=== PATIENT | male | born 1955 | race Caucasian/White ===

== ENCOUNTER 2024-05-10 15:16 | Emergency (ER) | payer OTHER, SELFPAY ==
[2024-05-10] VITALS (16 sets, daily range): BP systolic 129–224; BP diastolic 59–126; PULSE 65–126; RESP 14–25; TEMP 37.4; O2SAT 94–98; BMI 33.5
--- NOTE | 2024-05-10 15:36 | ED_ITS ---
HPI - Skin/Abscess/Foreign Bdy <Alexandr Muñoz MD - Last Filed: 05/11/24 12:05> General Chief complaint: Skin/Abscess/Foreign Body Stated complaint: headache, not eating x4 days Time Seen by Provider: 05/10/24 15:32 Source: patient Mode of arrival: Ambulatory Limitations: no limitations History of Present Illness HPI narrative: Patient here with his . Complains of left facial burning/pain for the past 5 days. Patient stated pain started last Wednesday. By Wednesday rash appeared. Patient does have history of chickenpox as a child. No prior history of shingles. Patient does not want steroids for treatment of shingles. Blood pressure noted. Patient states he is very anxious and has facial pain. No vision changes. No pain with eye movement. Patient has rash/vesicles of the left cheek left periorbital left forehead and left tasia nasal area. Does not cross midline. It does extend into the scalp. Has not had much of an appetite for the past 3 days. Related Data Previous Rx's Medication Instructions Recorded erythromycin 5 mg/gram (0.5 %) eye 0.5 inch ophthalmic (eye) Q8H #3.5 05/10/24 ointment grams ondansetron 4 mg disintegrating 4 mg PO Q6H PRN nausea and 05/10/24 tablet vomiting #10 tabs oxycodone 5 mg tablet 5 mg PO Q6H PRN pain #20 tabs 05/10/24 valacyclovir 1 gram tablet 1,000 mg PO Q8H 7 days #21 tabs 05/10/24 Allergies Allergy/AdvReac Type Severity Reaction Status Date / Time No Known Drug Allergies Allergy Verified 05/10/24 15:44 Review of Systems <Alexandr Muñoz MD - Last Filed: 05/11/24 12:05> Review of Systems Narrative: GENERAL: negative chills, fatigue, malaise, fever, sweats. HEENT: negative sinus pain, ear pain, sore throat RESPIRATORY: negative dyspnea, cough CARDIOVASCULAR: negative chest pain, palpitations GASTROINTESTINAL: Positive nausea, vomiting, negative abdominal pain : negative dysuria, frequency, hematuria MUSCULOSKELETAL: negative muscle or bony pain SKIN: Positive rash, skin lesions NEUROLOGIC: negative weakness, numbness, negative headache Patient History <Alexandr Muñoz MD - Last Filed: 05/11/24 12:05> Social History Smoking Status: Former smoker Smoking Status: Former smoker alcohol intake frequency: other Alcohol type: other Exam <Alexandr Muñoz MD - Last Filed: 05/11/24 12:05> Narrative Exam Narrative: GENERAL: in no distress, not toxic not dyspneic HEAD: Normocephalic. EYES: Pupils equal round, denies any eye pain. No scleral injection of the left eye no conjunctivitis. No pain with eye movement. EOMI/YAMILEX ENT: Mucous membranes moist. NECK: Trachea midline. CARDIOVASCULAR: Regular rate and rhythm RESPIRATORY: Clear to auscultation. Breath sounds equal bilaterally. No wheezes, rales, or rhonchi. GASTROINTESTINAL: Abdomen soft, non-tender EXTREMITIES: No gross deformities. BACK: No flank tenderness. NEURO: AOx4. Clear speech SKIN: Warm and dry, there is vesicles shingles pattern at the left forehead left periorbital left nasal left cheek, extending to the scalp. It does not cross midline. PSYCH: Not anxious, is cooperative Initial Vital Signs Initial Vital Signs: Vital Signs Pulse Rate 79 05/10/24 15:23 Pulse Oximetry 96 05/10/24 15:23 <Celena Smith DO - Last Filed: 05/11/24 03:52> Initial Vital Signs Initial Vital Signs: Vital Signs Pulse Rate 79 05/10/24 15:23 Pulse Oximetry 96 05/10/24 15:23 Course <Alexandr Muñoz MD - Last Filed: 05/11/24 12:05> Orders Ordered: Discontinued Medications Carvedilol (Carvedilol 12.5 Mg Tablet) 12.5 mg PO NOW ONE Stop: 05/10/24 17:44 Last Admin: 05/10/24 17:55 Dose: 12.5 mg Documented By: JOHN Fluorescein Sodium (Fluorescein 1 Mg Strip) 1 mg EYE-BOTH NOW ONE Stop: 05/10/24 19:27 Last Admin: 05/10/24 19:43 Dose: 1 mg Documented By: ISAAC Hydromorphone HCl (Hydromorphone 1 Mg Inj) 1 mg IV NOW ONE Stop: 05/10/24 15:36 Last Admin: 05/10/24 15:41 Dose: 1 mg Documented By: ALPA Sodium Chloride (Normal Saline 0.9%) 1,000 mls @ 1,000 mls/hr IV BOLUS ONE Stop: 05/10/24 16:26 Last Infusion: 05/10/24 16:51 Dose: Infused Documented By: Admin: 05/10/24 15:41 Dose: 1,000 mls/hr Documented By: ALPA Acyclovir 500 mg/ Dextrose 250 mls @ 250 mls/hr IV NOW ONE Stop: 05/10/24 15:37 Last Infusion: 05/10/24 17:33 Dose: Infused Documented By: Admin: 05/10/24 16:06 Dose: 250 mls/hr Documented By: ALPA Ondansetron HCl (Ondansetron 4 Mg/2 Ml Inj) 4 mg IV NOW PRN PRN Reason: Nausea And Vomiting Last Admin: 05/10/24 15:41 Dose: 4 mg Documented By: ALPA Ondansetron HCl (Ondansetron 4 Mg Odt) 4 mg SL NOW PRN PRN Reason: Nausea And Vomiting Ondansetron HCl (Ondansetron 4 Mg Odt Prepack) 1 bottle MISC DIRECTED ONE Stop: 05/10/24 21:05 Last Admin: 05/10/24 21:08 Dose: 1 bottle Documented By: ALPA Oxycodone/Acetaminophen (Oxycodone/Acetaminophen 5/325 Tablet) 2 tab PO NOW ONE Stop: 05/10/24 17:44 Last Admin: 05/10/24 17:56 Dose: 2 tab Documented By: JOHN Oxycodone/Acetaminophen (Oxycodone/Apap 5/325 Prepack) 1 bottle MISC DIRECTED ONE Stop: 05/10/24 21:05 Last Admin: 05/10/24 21:08 Dose: 1 bottle Documented By: ALPA Prochlorperazine (Prochlorperazine 10 Mg/2 Ml Vial) 10 mg IV NOW ONE Stop: 05/10/24 15:44 Last Admin: 05/10/24 15:46 Dose: 10 mg Documented By: ALPA Proparacaine HCl (Proparacaine 0.5% Ophth [place]) 1 drops EYE-BOTH NOW ONE Stop: 05/10/24 19:27 Last Admin: 05/10/24 19:42 Dose: 1 drop Documented By: [facility] Vital Signs Vital signs: Vital Signs - 8 hr 05/10/24 15:23 05/10/24 15:25 05/10/24 15:26 Temperature 99.4 F Pulse Rate 79 126 H 115 H Respiratory Rate 20 14 Blood Pressure 224/126 H Pulse Oximetry 96 98 97 Oxygen Delivery Method Room Air 05/10/24 15:30 05/10/24 15:36 05/10/24 15:36 Temperature Pulse Rate 109 H 104 H Respiratory Rate 25 H Blood Pressure 193/125 H Pulse Oximetry 97 97 Oxygen Delivery Method Room Air 05/10/24 16:00 05/10/24 16:00 05/10/24 16:30 Temperature Pulse Rate 107 H Respiratory Rate 24 Blood Pressure 175/107 H 189/96 H Pulse Oximetry 94 Oxygen Delivery Method 05/10/24 16:30 05/10/24 17:00 05/10/24 17:00 Temperature Pulse Rate 87 98 H Respiratory Rate 23 Blood Pressure 184/105 H Pulse Oximetry 95 96 Oxygen Delivery Method 05/10/24 17:13 05/10/24 17:13 05/10/24 17:30 Temperature Pulse Rate 91 H 93 H Respiratory Rate Blood Pressure 185/113 H Pulse Oximetry 95 96 Oxygen Delivery Method 05/10/24 17:55 05/10/24 18:00 05/10/24 18:30 Temperature Pulse Rate 114 H 88 97 H Respiratory Rate 24 18 Blood Pressure 185/113 H Pulse Oximetry 96 97 Oxygen Delivery Method 05/10/24 18:58 05/10/24 18:58 05/10/24 19:00 Temperature Pulse Rate 65 Respiratory Rate Blood Pressure 137/76 129/59 L Pulse Oximetry 94 Oxygen Delivery Method 05/10/24 19:00 05/10/24 19:30 05/10/24 19:30 Temperature Pulse Rate 74 69 Respiratory Rate Blood Pressure 145/80 H Pulse Oximetry 94 96 Oxygen Delivery Method <Celena Smith, - Last Filed: 05/11/24 03:52> Orders Ordered: Discontinued Medications Carvedilol (Carvedilol 12.5 Mg Tablet) 12.5 mg PO NOW ONE Stop: 05/10/24 17:44 Last Admin: 05/10/24 17:55 Dose: 12.5 mg Documented By: JOHN Fluorescein Sodium (Fluorescein 1 Mg Strip) 1 mg EYE-BOTH NOW ONE Stop: 05/10/24 19:27 Last Admin: 05/10/24 19:43 Dose: 1 mg Documented By: ISAAC Hydromorphone HCl (Hydromorphone 1 Mg Inj) 1 mg IV NOW ONE Stop: 05/10/24 15:36 Last Admin: 05/10/24 15:41 Dose: 1 mg Documented By: ALPA Sodium Chloride (Normal Saline 0.9%) 1,000 mls @ 1,000 mls/hr IV BOLUS ONE Stop: 05/10/24 16:26 Last Infusion: 05/10/24 16:51 Dose: Infused Documented By: Admin: 05/10/24 15:41 Dose: 1,000 mls/hr Documented By: ALPA Acyclovir 500 mg/ Dextrose 250 mls @ 250 mls/hr IV NOW ONE Stop: 05/10/24 15:37 Last Infusion: 05/10/24 17:33 Dose: Infused Documented By: Admin: 05/10/24 16:06 Dose: 250 mls/hr Documented By: ALPA Ondansetron HCl (Ondansetron 4 Mg/2 Ml Inj) 4 mg IV NOW PRN PRN Reason: Nausea And Vomiting Last Admin: 05/10/24 15:41 Dose: 4 mg Documented By: ALPA Ondansetron HCl (Ondansetron 4 Mg Odt) 4 mg SL NOW PRN PRN Reason: Nausea And Vomiting Ondansetron HCl (Ondansetron 4 Mg Odt Prepack) 1 bottle MISC DIRECTED ONE Stop: 05/10/24 21:05 Last Admin: 05/10/24 21:08 Dose: 1 bottle Documented By: ALPA Oxycodone/Acetaminophen (Oxycodone/Acetaminophen 5/325 Tablet) 2 tab PO NOW ONE Stop: 05/10/24 17:44 Last Admin: 05/10/24 17:56 Dose: 2 tab Documented By: JOHN Oxycodone/Acetaminophen (Oxycodone/Apap 5/325 Prepack) 1 bottle MISC DIRECTED ONE Stop: 05/10/24 21:05 Last Admin: 05/10/24 21:08 Dose: 1 bottle Documented By: ALPA Prochlorperazine (Prochlorperazine 10 Mg/2 Ml Vial) 10 mg IV NOW ONE Stop: 05/10/24 15:44 Last Admin: 05/10/24 15:46 Dose: 10 mg Documented By: ALPA Proparacaine HCl (Proparacaine 0.5% Ophth [place]) 1 drops EYE-BOTH NOW ONE Stop: 05/10/24 19:27 Last Admin: 05/10/24 19:42 Dose: 1 drop Documented By: [facility] Vital Signs Vital signs: Vital Signs - 8 hr 05/10/24 15:23 05/10/24 15:25 05/10/24 15:26 Temperature 99.4 F Pulse Rate 79 126 H 115 H Respiratory Rate 20 14 Blood Pressure 224/126 H Pulse Oximetry 96 98 97 Oxygen Delivery Method Room Air 05/10/24 15:30 05/10/24 15:36 05/10/24 15:36 Temperature Pulse Rate 109 H 104 H Respiratory Rate 25 H Blood Pressure 193/125 H Pulse Oximetry 97 97 Oxygen Delivery Method Room Air 05/10/24 16:00 05/10/24 16:00 05/10/24 16:30 Temperature Pulse Rate 107 H Respiratory Rate 24 Blood Pressure 175/107 H 189/96 H Pulse Oximetry 94 Oxygen Delivery Method 05/10/24 16:30 05/10/24 17:00 05/10/24 17:00 Temperature Pulse Rate 87 98 H Respiratory Rate 23 Blood Pressure 184/105 H Pulse Oximetry 95 96 Oxygen Delivery Method 05/10/24 17:13 05/10/24 17:13 05/10/24 17:30 Temperature Pulse Rate 91 H 93 H Respiratory Rate Blood Pressure 185/113 H Pulse Oximetry 95 96 Oxygen Delivery Method 05/10/24 17:55 05/10/24 18:00 05/10/24 18:30 Temperature Pulse Rate 114 H 88 97 H Respiratory Rate 24 18 Blood Pressure 185/113 H Pulse Oximetry 96 97 Oxygen Delivery Method 05/10/24 18:58 05/10/24 18:58 05/10/24 19:00 Temperature Pulse Rate 65 Respiratory Rate Blood Pressure 137/76 129/59 L Pulse Oximetry 94 Oxygen Delivery Method 05/10/24 19:00 05/10/24 19:30 05/10/24 19:30 Temperature Pulse Rate 74 69 Respiratory Rate Blood Pressure 145/80 H Pulse Oximetry 94 96 Oxygen Delivery Method MDM - Skin/Abscess/Foreign Bdy <Alexandr Muñoz MD - Last Filed: 05/11/24 12:05> Lab Data 05/10/24 15:30 05/10/24 15:30 Labs: Lab Results 05/10/24 05/10/24 Range/Units 15:30 17:55 WBC 15.8 H (4.5-11.0) X10^3/uL RBC 6.00 H (4.5-5.9) X10^6/uL Hgb 18.0 H (13.5-17.5) g/dL Hct 52.6 (41-53) % MCV 87.7 (80-100) fL MCH 30.0 (26-34) PG MCHC 34.2 (30-36) % RDW 13.9 (11.6-14.8) % Plt Count 213 (150-400) X10^3/uL Neut % (Auto) 68.6 (50-75) % Lymph % (Auto) 22.7 L (25-40) % [place] % (Auto) 8.2 (3-14) % Eos % (Auto) 0.2 L (2-4) % Baso % (Auto) 0.3 (0-2) % Neut # (Auto) 97163 H (9317-9401) /uL Lymph # (Auto) 3600 (8842-7487) /uL [place] # (Auto) 1300 H (0-900) /uL Eos # (Auto) 0 (0-450) /uL Baso # (Auto) 0 (0-100) /uL PT 12.9 H (9.4-12.5) SECONDS INR 1.1 (0.9-1.3) APTT 36 (25.1-36.5) SECONDS Sodium 136 L (137-145) mmol/L Potassium 3.7 (3.4-5.1) mmol/L Chloride 101 (98-107) mmol/L Carbon Dioxide 23 (22-32) mmol/L BUN 16 (9-20) mg/dL Creatinine 0.76 (0.66-1.25) mg/dL Estimated GFR > 60 (>60) mL/min BUN/Creatinine Ratio 21.1 (6-22) Glucose 132 H (80-110) mg/dL Lactate 1.7 (0.7-2.1) mmol/L Calcium 9.1 (8.4-10.2) mg/dL Total Bilirubin 1.8 H (0.2-1.3) mg/dL AST 36 (17-59) IU/L ALT 39 (<50) IU/L Alkaline Phosphatase 70 (38-126) U/L Total Protein 8.4 H (6.3-8.2) g/dL Albumin 4.8 (3.5-5.0) g/dL Globulin 3.6 (1.7-4.1) g/dL Albumin/Globulin Ratio 1.3 (1.0-2.8) Lipase 33 (23-300) U/L Procalcitonin 0.051 (<0.5) ng/mL Chlamy pneumoniae PCR Not detected (Not Detect) Adenovirus (PCR) Not detected (Not Detect) B.parapertussis DNA PCR Not detected (Not Detecte) Coronavirus OC43 (PCR) Not detected (Not Detect) Coronavirus HKU1 (PCR) Not detected (Not Detect) Coronavirus 229E (PCR) Not detected (Not Detect) SARS-CoV-2 (PCR) Not detected (Not Detecte) Coronavirus NL63 (PCR) Not detected (Not Detect) Human Metapneumovir PCR Not detected (Not Detect) Influenza Type A (PCR) Not detected (Not Detect) Influenza Type B (PCR) Not detected (Not Detect) M. pneumoniae (PCR) Not detected (Not Detect) Parainfluenza 1 (PCR) Not detected (Not Detect) Parainfluenza 2 (PCR) Not detected (Not Detect) Parainfluenza 3 (PCR) Not detected (Not Detect) Parainfluenza 4 (PCR) Not detected (Not Detect) RSV (PCR) Not detected (Not Detect) Entero/Rhino (PCR) Not detected (Not Detect) [facility] Narrative Medical decision making narrative: Patient here with his . Complains of left facial burning/pain for the past 5 days. Patient stated pain started last Wednesday. By Wednesday rash appeared. Patient does have history of chickenpox as a child. No prior history of shingles. Patient does not want steroids for treatment of shingles. Blood pressure noted. Patient states he is very anxious and has facial pain. No vision changes. No pain with eye movement. Patient has rash/vesicles of the left cheek left periorbital left forehead and left tasia nasal area. Does not cross midline. It does extend into the scalp. Has not had much of an appetite for the past 3 days. After history and exam CBC CMP acyclovir Dilaudid Zofran normal saline MDM Medical records reviewed: No recent visit for this complaint Differential considered: Includes but not limited to shingles cellulitis meningitis encephalitis, clinically with patient's interaction and very energetic and active, likely not meningitis/encephalitis Lab Test results independently reviewed as above. Pertinent findings: WBC 15.8 INR 1.1 sodium 136 potassium 3.7 glucose 132 procalcitonin 0.051 lactic acid 1.7 Consultations: Treatments: Dilaudid Zofran Compazine normal saline Percocet acyclovir Re-evaluations: Patient updated results. Still tachycardic history AFib this is not new but no chest pain or shortness of breath. He is on aspirin and Coreg. Takes 12.5 mg Coreg twice a day. He states sometimes he forgets sometimes he has not in the past 5 days. I will order Coreg now as well as Percocet, this has been effective for pain control for him in the past. Discussion: 6:00 p.m.. Sign out to Dr. Smith, reassess for blood pressure as well as pain control. Diagnosis of shingles. Patient does not want steroids. Diagnosis: Shingles 05/10/2024 Dr. Smith: Patient signed out to myself found to have shingles here in the department has facial swelling, did not want steroids no vision changes did not cross midline does not have any eye patient is being started on medications including valacyclovir, drops Labs reviewed patient has a white count of 15 hemoglobin of 18 platelets of 213. INR is 1.1 sodium is 136 potassium 3.7 chloride 1 CO2 is 23 BUN 16 creatinine 0.7, glucose 132 lactate 1.7 bilirubin slightly up at 1.8 calcium and LFTs are otherwise normal protocol 0.051. Patient had respiratory panel which was negative Patient had chest x-ray which was negative. Patient was examined by myself has erythema does have shingles like rash does not appear to have any involvement the eye but did use proparacaine and fluorescein for examination there are no dendritic lesions in the eye itself, uptake. But discussed with patient if he has any pain into the eye itself he needs to have re-evaluation. Plan to start valacyclovir, patient does not want any steroids we will give Percocet for pain management as well as Zofran. Discussed with patient need for follow-up. They are here until May so we will also give follow up for Ophthalmology for recheck as needed patient and family were recommended to return to the ED if worsening symptoms. Patient states symptoms are improved since he has been here, blood pressures improved quite a bit as well. <Celena Smith, DO - Last Filed: 05/11/24 03:52> Lab Data Labs: Lab Results 05/10/24 05/10/24 Range/Units 15:30 17:55 WBC 15.8 H (4.5-11.0) X10^3/uL RBC 6.00 H (4.5-5.9) X10^6/uL Hgb 18.0 H (13.5-17.5) g/dL Hct 52.6 (41-53) % MCV 87.7 (80-100) fL MCH 30.0 (26-34) PG MCHC 34.2 (30-36) % RDW 13.9 (11.6-14.8) % Plt Count 213 (150-400) X10^3/uL Neut % (Auto) 68.6 (50-75) % Lymph % (Auto) 22.7 L (25-40) % [place] % (Auto) 8.2 (3-14) % Eos % (Auto) 0.2 L (2-4) % Baso % (Auto) 0.3 (0-2) % Neut # (Auto) 28008 H (3072-5062) /uL Lymph # (Auto) 3600 (0741-8193) /uL [place] # (Auto) 1300 H (0-900) /uL Eos # (Auto) 0 (0-450) /uL Baso # (Auto) 0 (0-100) /uL PT 12.9 H (9.4-12.5) SECONDS INR 1.1 (0.9-1.3) APTT 36 (25.1-36.5) SECONDS Sodium 136 L (137-145) mmol/L Potassium 3.7 (3.4-5.1) mmol/L Chloride 101 (98-107) mmol/L Carbon Dioxide 23 (22-32) mmol/L BUN 16 (9-20) mg/dL Creatinine 0.76 (0.66-1.25) mg/dL Estimated GFR > 60 (>60) mL/min BUN/Creatinine Ratio 21.1 (6-22) Glucose 132 H (80-110) mg/dL Lactate 1.7 (0.7-2.1) mmol/L Calcium 9.1 (8.4-10.2) mg/dL Total Bilirubin 1.8 H (0.2-1.3) mg/dL AST 36 (17-59) IU/L ALT 39 (<50) IU/L Alkaline Phosphatase 70 (38-126) U/L Total Protein 8.4 H (6.3-8.2) g/dL Albumin 4.8 (3.5-5.0) g/dL Globulin 3.6 (1.7-4.1) g/dL Albumin/Globulin Ratio 1.3 (1.0-2.8) Lipase 33 (23-300) U/L Procalcitonin 0.051 (<0.5) ng/mL Chlamy pneumoniae PCR Not detected (Not Detect) Adenovirus (PCR) Not detected (Not Detect) B.parapertussis DNA PCR Not detected (Not Detecte) Coronavirus OC43 (PCR) Not detected (Not Detect) Coronavirus HKU1 (PCR) Not detected (Not Detect) Coronavirus 229E (PCR) Not detected (Not Detect) SARS-CoV-2 (PCR) Not detected (Not Detecte) Coronavirus NL63 (PCR) Not detected (Not Detect) Human Metapneumovir PCR Not detected (Not Detect) Influenza Type A (PCR) Not detected (Not Detect) Influenza Type B (PCR) Not detected (Not Detect) M. pneumoniae (PCR) Not detected (Not Detect) Parainfluenza 1 (PCR) Not detected (Not Detect) Parainfluenza 2 (PCR) Not detected (Not Detect) Parainfluenza 3 (PCR) Not detected (Not Detect) Parainfluenza 4 (PCR) Not detected (Not Detect) RSV (PCR) Not detected (Not Detect) Entero/Rhino (PCR) Not detected (Not Detect) Imaging Data Chest x-ray: Radiologist's Impression: [address] [address] XRay Report Signed Patient: Tex Forbes MR#: [id number] : 1955 Acct:[id number] Age/Sex: 68 / M Date of Service: 05/10/24 Loc: ED Accession Number: [id number] Procedure: XR chest 1V Ordering Provider: Celena Smith D.O. PROCEDURE: XR CHEST 1V INDICATIONS: afib, shingles TECHNIQUE: One view of the chest was acquired. COMPARISON: None. FINDINGS: Surgical changes and devices: None. Lungs and pleura: Lungs are clear. No pleural effusions or pneumothorax. Mediastinum: Mediastinal contours appear normal. Heart size is enlarged. Bones and chest wall: No suspicious bony lesions. Overlying soft tissues appear unremarkable. IMPRESSION: Cardiomegaly. No acute pulmonary process. Dictated by: Shiva Troy M.D. on 05/10/2024 at 19:05 Approved by: Shiva Troy M.D. on 05/10/2024 at 19:06 [facility] Narrative Medical decision making narrative: Patient here with his . Complains of left facial burning/pain for the past 5 days. Patient stated pain started last Wednesday. By Wednesday rash appeared. Patient does have history of chickenpox as a child. No prior history of shingles. Patient does not want steroids for treatment of shingles. Blood pressure noted. Patient states he is very anxious and has facial pain. No vision changes. No pain with eye movement. Patient has rash/vesicles of the left cheek left periorbital left forehead and left tasia nasal area. Does not cross midline. It does extend into the scalp. Has not had much of an appetite for the past 3 days. After history and exam CBC CMP acyclovir Dilaudid Zofran normal saline [facility] Medical records reviewed: No recent visit for this complaint Differential considered: Includes but not limited to shingles cellulitis meningitis encephalitis Lab Test results independently reviewed as above. Pertinent findings: WBC 15.8 INR 1.1 sodium 136 potassium 3.7 glucose 132 procalcitonin 0.051 lactic acid 1.7 Consultations: Treatments: Dilaudid Zofran Compazine normal saline Percocet acyclovir Re-evaluations: Patient updated results. Still tachycardic history AFib this is not new but no chest pain or shortness of breath. He is on aspirin and Coreg. Takes 12.5 mg Coreg twice a day. He states sometimes he forgets sometimes he has not in the past 5 days. I will order Coreg now as well as Percocet, this has been effective for pain control for him in the past. Discussion: 6:00 p.m.. Sign out to Dr. Smith, reassess for blood pressure as well as pain control. Diagnosis of shingles. Patient does not want steroids. Diagnosis: Shingles 05/10/2024 Dr. Smith: Patient signed out to myself found to have shingles here in the department has facial swelling, did not want steroids no vision changes did not cross midline does not have any eye patient is being started on medications including valacyclovir, drops Labs reviewed patient has a white count of 15 hemoglobin of 18 platelets of 213. INR is 1.1 sodium is 136 potassium 3.7 chloride 1 CO2 is 23 BUN 16 creatinine 0.7, glucose 132 lactate 1.7 bilirubin slightly up at 1.8 calcium and LFTs are otherwise normal protocol 0.051. Patient had respiratory panel which was negative Patient had chest x-ray which was negative. Patient was examined by myself has erythema does have shingles like rash does not appear to have any involvement the eye but did use proparacaine and fluorescein for examination there are no dendritic lesions in the eye itself, uptake. But discussed with patient if he has any pain into the eye itself he needs to have re-evaluation. Plan to start valacyclovir, patient does not want any steroids we will give Percocet for pain management as well as Zofran. Discussed with patient need for follow-up. They are here until May so we will also give follow up for Ophthalmology for recheck as needed patient and family were recommended to return to the ED if worsening symptoms. Patient states symptoms are improved since he has been here, blood pressures improved quite a bit as well. Discharge Plan Departure Patient Disposition: Home Clinical Impression: Shingles Qualifiers: Herpes zoster complications: without complications Qualified Code(s): B02.9 - Zoster without complications Instructions: DI for Shingles Activity Restrictions/Additional Instructions: Please follow up for recheck, there is no obvious shingles within your eye itself today on exam but if you develop any pain in your eye you need to be seen again either in the emergency department or by Ophthalmology. Contact is included below. Take antivirals until completed. You can take Zofran 1 tablet every 6 hours as needed for nausea. Take Tylenol 1000 mg every 6 hours as needed for pain. If in adequate you can take oxycodone 1-2 tablets every 6 hours as needed. This medication can make you sleepy do not drive, perform hazardous activities or make any major decisions while taking it. This medication will make you constipated please take a stool softener once to twice daily until stools are soft and regular. Can use topical triple antibiotic ointment over the area of shingles to help prevent any bacterial infection on top of the viral infection. Prescription changed to [facility] in [place] Please return for new fevers, rapidly worsening symptoms, any changes in mental status, persistent vomiting, eye pain, difficulty with vision or other new or concerning changes. Prescriptions: New ondansetron 4 mg tablet,disintegrating 4 mg PO Q6H PRN (Reason: nausea and vomiting) Qty: 10 10RF oxycodone 5 mg tablet 5 mg PO Q6H PRN (Reason: pain) Qty: 20 0RF valacyclovir 1 gram tablet 1,000 mg PO Q8H 7 Days Qty: 21 0RF erythromycin 5 mg/gram (0.5 %) ointment 0.5 inch ophthalmic (eye) Q8H Qty: 3.5 0RF Referrals: June Lopez MD [Primary Care Provider] - Morris Rodriugez MD [Physician] - Stand Alone Forms: Patient Portal/API
[2024-05-10] MEDS: ONDANSETRON 4 MG/2 ML INJ IV (15:41)
[2024-05-10] MEDS: SODIUM CHLORIDE 0.9% 1,000 ML 1000 ML IV (15:41)
[2024-05-10] MEDS: HYDROMORPHONE 1 MG INJ IV (15:41)
[2024-05-10 15:46] LABS: Add Manual Diff / Slide Review NO; Basophils Absolute Auto 0 /uL (0-100); Basophils Percent Auto 0.3 % (0-2); Eosinophils Absolute Auto 0 /uL (0-450); Eosinophils Percent Auto 0.2 % (2-4); Hematocrit 52.6 % (41-53); Lymphocytes Absolute Auto 3600 /uL (1100-4500); Lymphocytes Percent Auto 22.7 % (25-40); Mean Corpuscular HGB Conc 34.2 % (30-36); Mean Corpuscular Volume 87.7 fL (80-100); Monocytes Absolute Auto 1300 /uL (0-900); Monocytes Percent Auto 8.2 % (3-14); Neutrophils Absolute Auto 10900 /uL (1500-7000); Neutrophils Percent Auto 68.6 % (50-75); Platelet Count 213 X10^3/uL (150-400); Red Cell Distribution Width 13.9 % (11.6-14.8); White Blood Cell Count 15.8 X10^3/uL (4.5-11.0)
[2024-05-10] MEDS: PROCHLORPERAZINE 10 MG/2 ML VIAL IV (15:46)
[2024-05-10 15:51] LABS: INR 1.1 (0.9-1.3); Prothrombin Time 12.9 SECONDS (9.4-12.5)
[2024-05-10 15:54] LABS: PTT Partial Thromboplastin Tim 36 SECONDS (25.1-36.5)
[2024-05-10 15:58] LABS: Alanine Aminotransferase 39 IU/L (<50); Albumin 4.8 g/dL (3.5-5.0); Albumin Globulin Ratio 1.3 (1.0-2.8); Alkaline Phosphatase 70 U/L (38-126); Aspartate Aminotransferase 36 IU/L (17-59); BUN Creatinine Ratio 21.1 (6-22); Bilirubin Total 1.8 mg/dL (0.2-1.3); Blood Urea Nitrogen 16 mg/dL (9-20); Calcium 9.1 mg/dL (8.4-10.2); Carbon Dioxide 23 mmol/L (22-32); Chloride 101 mmol/L (98-107); Estimated Glomerular Filt Rate > 60 mL/min (>60); Globulin 3.6 g/dL (1.7-4.1); Glucose 132 mg/dL (80-110); HEMOLYSIS 30 (0-50); Lipase 33 U/L (23-300); Potassium 3.7 mmol/L (3.4-5.1); Sodium 136 mmol/L (137-145); Total Protein 8.4 g/dL (6.3-8.2)
[2024-05-10 15:59] LABS: Lactate (Lactic Acid) 1.7 mmol/L (0.7-2.1)
--- NOTE | 2024-05-10 16:01 | PC.NURSE ---
Pt afib RVR on monitor. HR between 105-125. Dr. Muñoz aware and wanting to hold off on EKG for now. Pt laying calmly in bed not chest pain/ SOB
[2024-05-10] MEDS: ACYCLOVIR 500 MG in DEXTROSE 5% IN WATER 250 ML 250 MG IV (16:06)
[2024-05-10 16:15] LABS: Procalcitonin 0.051 ng/mL (<0.5)
[2024-05-10] MEDS: carvediloL 12.5 MG TABLET PO (17:55)
[2024-05-10] MEDS: OXYCODONE/ACETAMINOPHEN 5/325 TABLET 2 TAB PO (17:56)
--- NOTE | 2024-05-10 18:20 | DI.RAD.S_ITS ---
PROCEDURE: XR CHEST 1V INDICATIONS: afib, shingles TECHNIQUE: One view of the chest was acquired. COMPARISON: None. FINDINGS: Surgical changes and devices: None. Lungs and pleura: Lungs are clear. No pleural effusions or pneumothorax. Mediastinum: Mediastinal contours appear normal. Heart size is enlarged. Bones and chest wall: No suspicious bony lesions. Overlying soft tissues appear unremarkable. IMPRESSION: Cardiomegaly. No acute pulmonary process. Dictated by: Shiva Troy M.D. on 05/10/2024 at 19:05 Approved by: Shiva Troy M.D. on 05/10/2024 at 19:06
[2024-05-10 18:52] LABS: Adenovirus Not Detected (Not Detect); B. parapertussis Not Detected (Not Detecte); Bordetella pertussis Not Detected (Not Detect); Chlamydophila pneumoniae Not Detected (Not Detect); Coronavirus 229E Not Detected (Not Detect); Coronavirus HKU1 Not Detected (Not Detect); Coronavirus NL 63 Not Detected (Not Detect); Coronavirus OC43 Not Detected (Not Detect); Human Metapneumovirus Not Detected (Not Detect); Human Rhinovirus/Enterovirus Not Detected (Not Detect); Influenza A Not Detected (Not Detect); Influenza B Not Detected (Not Detect); Mycoplasma pneumoniae Not Detected (Not Detect); Parainfluenza Virus 1 Not Detected (Not Detect); Parainfluenza Virus 2 Not Detected (Not Detect); Parainfluenza Virus 3 Not Detected (Not Detect); Parainfluenza Virus 4 Not Detected (Not Detect); Respiratory Syncytial Virus Not Detected (Not Detect); SARS- CoV-2 Not Detected (Not Detecte)
[2024-05-10] MEDS: PROPARACAINE 0.5% OPHTH SOL 1 DROPS EYE-BOTH (19:42)
[2024-05-10] MEDS: FLUORESCEIN 1 MG STRIP EYE-BOTH (19:43)
[2024-05-10] MEDS: OXYCODONE/APAP 5/325 PREPACK 1 BOTTLE MISC (21:08)
[2024-05-10] MEDS: ONDANSETRON 4 MG ODT PREPACK 1 BOTTLE MISC (21:08)
--- NOTE | 2024-05-10 21:08 | PC.NURSE ---
Addendum entered by Deyanira Molina R.N. 05/10/24 21:27: Pt unable to pick up worker prescription due to pharmacy closing. Prepacks ordered by Dr. Smith and pt returned to ED to pick them up at 2124 Original Note: Pt unable to pick up worker prescription due to pharmacy closing. Prepacks ordered by Dr. Smith and pt returned to ED to pick them up at 2109
== END 2024-05-10 20:02 | disposition home or self-care (01) ==
PROVIDERS: Emergency Medicine; Emergency Provider Emergency Medicine; PCP Family Medicine
DX: B02.9 Zoster without complications (principal)
CPT/HCPCS: 36415; 71045; 80053; 83605; 83690; 84145; 85025; 85610; 85730; 87040; 87633; 96365; 96375; 99284; J0780; J1170; J2405